=== PATIENT | female | born 1985 | race Caucasian/White ===

== ENCOUNTER 2016-09-29 22:19 | Emergency (ER) | payer OTHER ==
[~2016-09-29] VITALS: Ht 152.4 cm; Wt 75.0 kg
[2016-09-29 22:22] VITALS: Ht 152.4 cm; Wt 75.0 kg
[2016-09-30] MEDS ORDERED: SOD CHLORIDE 0.9% 1,000 ML IV STA (00:15)
[2016-09-30] MEDS ORDERED: ONDANSETRON 4 MG INJ IV STA (00:15)
[2016-09-30] MEDS ORDERED: morphine 4 MG/ML VIAL IV STA ×2 (00:15→02:09)
--- NOTE | 2016-09-30 00:31 | ERD ---
ER Documentation Chief Complaint Date/Time DATE: 09/30/16 TIME: 00:29 Chief Complaint epigastric burning pain,vomiting HPI 31-year-old female presents to emergency department for complaints of epigastric pain started today. Patient described the pain as sharp, burning 8/ 10 scale, accompanied with vomiting. Patient did not take any medications up with symptoms. Patient denies any fever or chills. Patient denies any blood in the stool or black stool. Patient denies any diarrhea. Patient denies any blood in the vomit. Patient did not take any medications to help with symptoms. ROS All systems reviewed and are negative except as per history of present illness. Medications Home Meds Reported Medications [none] Unknown Strength No Conflict Check 09/30/16 Allergies Allergies: Coded Allergies: No Known Allergy (Unverified , 09/29/16) PMhx/Soc Medical and Surgical Hx: pt denies Medical Hx, pt denies Surgical Hx FmHx Family History: No coronary disease, No diabetes, No other Physical Exam Vitals Vital Signs Date Time Temp Pulse Resp B/P Pulse Ox O2 Delivery O2 Flow Rate FiO2 09/29/16 22:22 98.1 87 18 140/87 100 Physical Exam GENERAL: The patient is well developed and appropriate for usual state of health, in no apparent distress. CHEST: Clear to auscultation bilaterally. There are no rales, wheezes or rhonchi. HEART: Regular rate and rhythm. No murmurs, clicks, rubs or gallops. No S3 or S4. ABDOMEN: Soft, that epigastric tenderness and nondistended. Good bowel sounds. No rebound or guarding. No gross peritonitis. No gross organomegaly or masses. No Sparks sign or McBurney point tenderness. BACK: No midline or flank tenderness. EXTREMITIES: Equal pulses bilaterally. There is no peripheral clubbing, cyanosis or edema. No focal swelling or erythema. Full range of motion. Grossly neurovascularly intact. NEURO: Alert and oriented. Cranial nerves 2-12 intact. Motor strength in all 4 extremities with 5/5 strength. Sensation grossly intact. Normal speech and gait. SKIN: There is no apparent rash or petechia. The skin is warm and dry. HEMATOLOGIC AND LYMPHATIC: There is no evidence of excessive bruising or lymphedema. No gross cervical, axillary, or inguinal lymphadenopathy. Result Diagram: 09/30/16 0030 09/30/16 0030 Results 24 hrs Laboratory Tests Test 09/30/16 00:30 09/30/16 01:00 Alanine Aminotransferase (ALT/SGPT) 27IU/L Albumin 4.7g/dl Albumin/Globulin Ratio 1.17 Alkaline Phosphatase 68IU/L Anion Gap 20 Aspartate Amino Transf (AST/SGOT) 26IU/L Basophils # 0.110^3/ul Basophils % 0.3% Blood Urea Nitrogen 11mg/dl Calcium Level 9.6mg/dl Carbon Dioxide Level 25mmol/L Chloride Level 98mmol/L Creatinine 0.65mg/dl Direct Bilirubin 0.00mg/dl Eosinophils # 0.110^3/ul Eosinophils % 0.5% Globulin 4.00g/dl Glucose Level 107mg/dl Hematocrit 39.0% Hemoglobin 13.3g/dl Indirect Bilirubin 0.8mg/dl Lipase 109U/L Lymphocytes # 1.310^3/ul Lymphocytes % 8.1% Mean Corpuscular Hemoglobin 29.6pg Mean Corpuscular Hemoglobin Concent 34.1g/dl Mean Corpuscular Volume 86.7fl Mean Platelet Volume 8.6fl Monocytes # 0.610^3/ul Monocytes % 3.8% Neutrophils # 13.610^3/ul Neutrophils % 87.3% Nucleated Red Blood Cells # 0.010^3/ul Nucleated Red Blood Cells % 0.0/100WBC Platelet Count 91016^3/UL Potassium Level 4.0mmol/L Red Blood Count 4.5010^6/ul Red Cell Distribution Width 13.3% Sodium Level 139mmol/L Total Bilirubin 0.8mg/dl Total Protein 8.7g/dl White Blood Count 15.610^3/ul Urine Bilirubin NEGATIVE Urine Clarity CLEAR Urine Color LT. YELLOW Urine Glucose NEGATIVE% Urine Hemoglobin NEGATIVE Urine Ketones 40 Urine Leukocyte Esterase NEGATIVE Urine Nitrite NEGATIVE Urine Specific [place] 1.020 Urine Total Protein NEGATIVE Urine Urobilinogen 0.2 E.U./dL Urine pH 6.5 Current Medications Medications (Trade) Dose Ordered Sig/Melvin Route PRN Reason Start Time Stop Time Status Last Admin Dose Admin Sodium Chloride (NS) 1,000 ml @ 1,000 mls/hr Q1H STAT IV 09/30/16 00:15 09/30/16 01:14 DC 09/30/16 00:29 Morphine Sulfate (morphine) 4 mg ONCE STAT IV 09/30/16 00:15 09/30/16 00:18 DC 09/30/16 00:30 Ondansetron HCl (Zofran Inj) 4 mg ONCE STAT IV 09/30/16 00:15 09/30/16 00:18 DC 09/30/16 00:29 Morphine Sulfate 4 mg 4 mg ONCE STAT IV 09/30/16 02:09 09/30/16 02:11 DC 09/30/16 02:13 Sodium Chloride (NS) 100 ml @ ud STK-MED ONCE .ROUTE 09/30/16 02:43 09/30/16 02:44 DC 09/30/16 03:05 Iohexol (Omnipaque 300mg/ ml) 150 ml STK-MED ONCE .ROUTE 09/30/16 02:43 09/30/16 02:44 DC 09/30/16 03:04 Patient was given medication for pain here in emergency department, after treatment, patient verbalized feeling much better. Patient's pain is improved.Patient was given Zofran here in the emergency department. After treatment, patient was able to tolerate po fluids here in the emergency department without any vomiting. There is no signs and symptoms of dehydration. Normal saline IV bolus was given here in emergency department for rehydration, patient tolerated IV fluids. PROCEDURE: US gallbladder. CLINICAL INDICATION: Abdominal pain. TECHNIQUE: Multiple real-time images were acquired of the patient's abdomen utilizing a high resolution transducer. COMPARISON: None FINDINGS: There are multiple stones within the gallbladder. There is no pericholecystic fluid or gallbladder wall thickening. Gallbladder wall measures 3 mm. The common bile duct measures 4 mm in maximal dimension. No free fluid is identified. Liver measures 141 mm. Right kidney measures 104 mm. No evident renal mass, hydronephrosis retained calculus. Partially visualized pancreas is unremarkable. IMPRESSION: Gallstones, without evident gallbladder wall thickening or pericholecystic fluid. RPTAT: [facility] Physician Bhargavi Date Time Electronically viewed and signed by Physician Bhargavi on 09/30/2016 00:56 RS/ CC: LIZZY DOMINGUEZ NP PROCEDURE: CT Abdomen and pelvis with contrast. CLINICAL INDICATION: Abdominal pain. TECHNIQUE: CT scan of the abdomen and pelvis with contrast was performed on a multi-detector high-resolution CT scanner. The patient was scanned following the uncomplicated intravenous administration of 100 cc of Omnipaque 300. Coronal and sagittal reformatted images were obtained from the axial source images. Images were reviewed on a high-resolution PACS workstation. One or more of the following dose reduction techniques were used: - Automated exposure control. - Adjustment of the mA and/or kV according to patient size. - Use of iterative reconstruction technique. Exam CTD/vol = 13.26 mGy. Total exam DLP = 792.50 mGy-cm. COMPARISON: None. FINDINGS: Evaluation of the lung bases demonstrates mild bibasilar atelectasis. Abdomen: The liver is normal in size with no focal mass identified. There is minimal intrahepatic biliary ductal dilatation of the biliary tree. The gallbladder is not distended. The spleen, pancreas and bilateral adrenal glands are within normal limits. Bilateral kidneys are normal in size with symmetric enhancement. There is no focal mass, hydronephrosis or hydroureter. There is no retroperitoneal adenopathy. The abdominal aorta is of normal caliber. There is a retroaortic left renal vein. There is no abnormal bowel wall thickening or distension. There is no bowel obstruction or free air. A normal appendix is identified. There is no diverticulosis or diverticulitis. There is no ascites. Pelvis: The bladder is unremarkable. The uterus and adnexa are within normal limits. There is no significant pelvic adenopathy or free fluid. Evaluation of the osseous structures demonstrates no suspicious lytic or blastic lesion. There is increase sclerosis surrounding the right sacroiliac joint. IMPRESSION: Minimal intrahepatic biliary ductal dilatation. Right-sided sacroiliitis. Mild bibasilar atelectasis. Otherwise no acute abnormality identified within the abdomen and pelvis. .Arnulfo Oviedo MD, Date Time Electronically viewed and signed by .Arnulfo Oviedo MD, MD on 09/30/2016 03:10 .T/ CC: LIZZY DOMINGUEZ NP Procedures/MDM Medical Decision Making: Patient's symptoms is likely consistent with biliary colic. No liver function test elevation, no symptoms of choledocholithiasis, acute cholecystitis. There is low suspicion for abdominal emergencies at this time. Patients abdominal exam is normal at this time. Patients radiology exam does not show any abdominal emergencies at this time. There is low suspicion for appendicitis, cholecystitis, abdominal aortic aneurysms or peritonitis at this time. There is low suspicion for sepsis. Patient appears well and is hemodynamically stable. Disposition: Home. Condition: Stable Prescription [place], Zofran Instructions: Patient is advised to take medications as prescribed. Patient is advised to rest, increase fluid intake and do brat diet for next 1-2 days and progress as tolerated, avoid fatty food. Patient is advised that if symptoms are worse, severe abdominal pain, uncontrolled vomiting, high fever, severe flank pain, worst signs and symptoms, to return to the emergency department immediately. Otherwise, patient can follow up with primary care doctor in 5-7 days. If pain continues to consult a general surgeon for possible removal of the gallbladder. Departure Diagnosis: Primary Impression: Biliary colic Condition: Stable Patient Instructions: Biliary Colic With Gallstone (Confirmed) Additional Instructions: Patient is advised to take medications as prescribed. Patient is advised to rest , increase fluid intake and do brat diet for next 1-2 days and progress as tolerated, avoid fatty food. Patient is advised that if symptoms are worse, severe abdominal pain, uncontrolled vomiting, high fever, severe flank pain, worst signs and symptoms, to return to the emergency department immediately. Otherwise, patient can follow up with primary care doctor in 5-7 days. If pain continues to consult a general surgeon for possible removal of the gallbladder. LIZZY DOMINGUEZ NP Sep 30, 2016 00:30
--- NOTE | 2016-09-30 00:57 | RADRPT ---
PROCEDURE: US gallbladder. CLINICAL INDICATION: Abdominal pain. TECHNIQUE: Multiple real-time images were acquired of the patient's abdomen utilizing a high resol ution transducer. COMPARISON: None FINDINGS: There are multiple stones within the gallbladder. There is no pericholecystic fluid or gallbladder w all thickening. Gallbladder wall measures 3 mm. The common bile duct measures 4 mm in maximal dimension. No free fluid is identified. Liver measures 141 mm. Right kidney measures 104 mm. No evident renal mass, hydronephrosis retaine d calculus. Partially visualized pancreas is unremarkable. IMPRESSION: Gallstones, without evident gallbladder wall thickening or pericholecystic fluid. RPTAT: [facility] Physician Bhargavi Date Time Electronically viewed and signed by Physician Bhargavi on 09/30/2016 00:56 RS/
[2016-09-30 01:18] LABS: BASOPHIL # 0.1 10^3/ul (0.0-0.1); BASOPHILS % 0.3 % (0.0-2.0); EOSINOPHILS # 0.1 10^3/ul (0.0-0.5); EOSINOPHILS % 0.5 % (0.0-7.0); HEMOGLOBIN 13.3 g/dl (12.0-16.0); LYMPHOCYTES # 1.3 10^3/ul (0.8-2.9); LYMPHOCYTES % 8.1 % (15.0-51.0); MEAN CORPUSCULAR HEMOGLOBIN 29.6 pg (29.0-33.0); MEAN CORPUSCULAR HGB CONC 34.1 g/dl (32.0-37.0); MEAN CORPUSCULAR VOLUME 86.7 fl (82.0-101.0); MEAN PLATELET VOLUME 8.6 fl (7.4-10.4); MONOCYTE # 0.6 10^3/ul (0.3-0.9); MONOCYTES % 3.8 % (0.0-11.0); NEUTROPHIL # 13.6 10^3/ul (1.6-7.5); NEUTROPHILS % 87.3 % (39.0-77.0); PLATELET COUNT 357 10^3/UL (140-440); RED CELL DISTRIBUTION WIDTH 13.3 % (11.5-14.5); UNCORRECTED WBC 15.6 10^3/ul (4.8-10.8); WHITE BLOOD COUNT 15.6 10^3/ul (4.8-10.8)
[2016-09-30 01:22] LABS: CONDITION 1
[2016-09-30 01:24] LABS: ALBUMIN 4.7 g/dl (3.3-4.9)
[2016-09-30 01:26] LABS: BILIRUBIN,INDIRECT 0.8 mg/dl (0-1.1); BILIRUBIN,TOTAL 0.8 mg/dl (0.2-1.3); CREATININE 0.65 mg/dl (0.44-1.00)
[2016-09-30 01:27] LABS: ALBUMIN/GLOBULIN RATIO 1.17; CALCIUM 9.6 mg/dl (8.4-10.2); TOTAL PROTEIN 8.7 g/dl (6.1-8.1)
[2016-09-30 01:42] LABS: ADD UMIC NO; URINE BILIRUBIN (Dip) NEGATIVE (NEGATIVE); URINE BLOOD (Dip) NEGATIVE (NEGATIVE); URINE COLOR LT. YELLOW (YELLOW); URINE GLUCOSE (Dip) NEGATIVE (NEGATIVE); URINE KETONES (Dip) 40 (NEGATIVE); URINE LEUKOCYTE ESTERASE (Dip) NEGATIVE (NEGATIVE); URINE NITRITE (Dip) NEGATIVE (NEGATIVE); URINE TOTAL PROTEIN (Dip) NEGATIVE (NEGATIVE); URINE UROBILINOGEN (Dip) 0.2 E.U./dL (0.1-1.0)
[2016-09-30] MEDS ORDERED: SOD CHLORIDE 0.9% 100 ML ONE (02:43)
[2016-09-30] MEDS ORDERED: IOHEXOL 300MG/ML 150 ML BTL ONE (02:43)
--- NOTE | 2016-09-30 03:10 | RADRPT ---
PROCEDURE: CT Abdomen and pelvis with contrast. CLINICAL INDICATION: Abdominal pain. TECHNIQUE: CT scan of the abdomen and pelvis with contrast was performed on a multi-detector high -resolution CT scanner. The patient was scanned following the uncomplicated intravenous administrat ion of 100 cc of Omnipaque 300. Coronal and sagittal reformatted images were obtained from the axia l source images. Images were reviewed on a high-resolution PACS workstation. One or more of the following dose reduction techniques were used: - Automated exposure control. - Adjustment of the mA and/or kV according to patient size. - Use of iterative reconstruction technique. Exam CTD/vol = 13.26 mGy. Total exam DLP = 792.50 mGy-cm. COMPARISON: None. FINDINGS: Evaluation of the lung bases demonstrates mild bibasilar atelectasis. Abdomen: The liver is normal in size with no focal mass identified. There is minimal intrahepatic biliary ductal dilatation of the biliary tree. The gallbladder is not distended. The spleen, pancr eas and bilateral adrenal glands are within normal limits. Bilateral kidneys are normal in size wit h symmetric enhancement. There is no focal mass, hydronephrosis or hydroureter. There is no retrop eritoneal adenopathy. The abdominal aorta is of normal caliber. There is a retroaortic left renal v ein. There is no abnormal bowel wall thickening or distension. There is no bowel obstruction or free air . A normal appendix is identified. There is no diverticulosis or diverticulitis. There is no asci jackie. Pelvis: The bladder is unremarkable. The uterus and adnexa are within normal limits. There is no significant pelvic adenopathy or free fluid. Evaluation of the osseous structures demonstrates no suspicious lytic or blastic lesion. There is in crease sclerosis surrounding the right sacroiliac joint. IMPRESSION: Minimal intrahepatic biliary ductal dilatation. Right-sided sacroiliitis. Mild bibasilar atelectasis. Otherwise no acute abnormality identified within the abdomen and pelvis. .Arnulfo Oviedo MD, MD Date Time Electronically viewed and signed by .Arnulfo Oviedo MD, MD on 09/30/2016 03:10 .T/
[2016-09-30] MEDS ORDERED: HYDR-906 PO (03:14)
[2016-09-30] MEDS ORDERED: ONDA4TAB14 PO (03:14)
[2016-09-30 03:40] VITALS: BP 108/61; PULSE 65; RESP 17; TEMP 98.1
== END 2016-09-30 03:41 | disposition home or self-care (01) ==
LOC: FTE 22:19
DX: K80.20 Calculus of gallbladder without cholecystitis without obstruction (principal)
CPT/HCPCS: 74177; 76705; 80053; 81003; 83690; 85025; J2270; J2405; J7030; Q9967; Z7610; 36415; 96374; 96375; 96376

== ENCOUNTER 2016-10-01 02:52 | Inpatient (IN) | payer OTHER ==
[2016-10-01] VITALS (17 sets, daily range): BP systolic 97–122; BP diastolic 55–71; PULSE 70–94; RESP 11–19; Ht 152.4 cm; Wt 175.0 kg
[~2016-10-01] VITALS: Ht 152.4 cm; Wt 175.0 kg
[~2016-10-01 02:52] MED LIST: HYDR-906 PO; ONDA4TAB14 PO
[2016-10-01] MEDS ORDERED: ONDANSETRON 4 MG INJ IV STA ×3 (03:36→09:47)
[2016-10-01] MEDS ORDERED: SOD CHLORIDE 0.9% 1,000 ML IV STA (03:36)
[2016-10-01] MEDS ORDERED: HYDROmorphONE 1 MG/ML SYG IV STA ×5 (03:36→11:05)
[2016-10-01 03:56] LABS: BASOPHIL # 0.1 10^3/ul (0.0-0.1); BASOPHILS % 0.6 % (0.0-2.0); EOSINOPHILS # 0.2 10^3/ul (0.0-0.5); EOSINOPHILS % 2.6 % (0.0-7.0); HEMOGLOBIN 13.2 g/dl (12.0-16.0); LYMPHOCYTES % 21.5 % (15.0-51.0); MEAN CORPUSCULAR HEMOGLOBIN 30.2 pg (29.0-33.0); MEAN CORPUSCULAR HGB CONC 34.7 g/dl (32.0-37.0); MEAN CORPUSCULAR VOLUME 87.2 fl (82.0-101.0); MEAN PLATELET VOLUME 8.1 fl (7.4-10.4); MONOCYTE # 0.5 10^3/ul (0.3-0.9); MONOCYTES % 5.9 % (0.0-11.0); NEUTROPHIL # 6.4 10^3/ul (1.6-7.5); NEUTROPHILS % 69.4 % (39.0-77.0); PLATELET COUNT 356 10^3/UL (140-440); RED BLOOD COUNT 4.35 10^6/ul (4.20-5.40); RED CELL DISTRIBUTION WIDTH 12.9 % (11.5-14.5); UNCORRECTED WBC 9.2 10^3/ul (4.8-10.8); WHITE BLOOD COUNT 9.2 10^3/ul (4.8-10.8)
[2016-10-01 04:01] LABS: CONDITION 1
[2016-10-01 04:15] LABS: ALBUMIN 4.5 g/dl (3.3-4.9)
[2016-10-01 04:16] LABS: POTASSIUM 3.7 mmol/L (3.5-5.1)
[2016-10-01 04:18] LABS: CREATININE 0.65 mg/dl (0.44-1.00)
[2016-10-01 04:19] LABS: ALBUMIN/GLOBULIN RATIO 1.25; CALCIUM 9.4 mg/dl (8.4-10.2); TOTAL PROTEIN 8.1 g/dl (6.1-8.1)
--- NOTE | 2016-10-01 05:39 | ERA ---
ER Documentation Chief Complaint Date/Time DATE: 10/01/16 TIME: 05:38 Chief Complaint abdominal pain with N/V x 2 days, diagnosed here yesterday with gallstones. HPI This is 31 feet with known history of gallstones comes in with abdominal pain nausea vomiting the past 2 days which was diagnosed yesterday with gallstones. She comes in today with intractable pain and 4-5 episodes bilious nonbloody vomiting. Pain is moderate to severe in intensity per patient. ROS All systems reviewed and are negative except as per history of present illness. Medications Home Meds Active Scripts Ondansetron (Ondansetron Odt) 4 Mg Tab.rapdis, 4 MG PO Q8 Y for NAUSEA AND/OR VOMITING, #10 TAB Prov:LIZZY DOMINGUEZ METAL BONDER 09/30/16 Hydrocodone/Acetaminophen ([place] 5-325 Tablet) 1 Each Tablet, 1 TAB PO Q6H Y for PAIN, #20 TAB Prov:LIZZY DOMINGUEZ METAL BONDER 09/30/16 Reported Medications [none] Unknown Strength No Conflict Check 09/30/16 Allergies Allergies: Coded Allergies: No Known Allergy (Unverified , 09/29/16) PMhx/Soc History of Surgery: No Anesthesia Reaction: No Hx Neurological Disorder: No Hx Respiratory Disorders: No Hx Cardiac Disorders: No Hx Psychiatric Problems: No Hx Miscellaneous Medical Probl: Yes (GALLSTONES) Hx Alcohol Use: No Hx Substance Use: No Hx Tobacco Use: No Smoking Status: Never smoker Physical Exam Vitals Vital Signs Date Time Temp Pulse Resp B/P Pulse Ox O2 Delivery O2 Flow Rate FiO2 10/01/16 04:35 90 16 109/67 97 Room Air 10/01/16 02:57 96.8 82 20 136/87 99 Physical Exam Const: [] Head: Atraumatic Eyes: Normal Conjunctiva ENT: Normal External Ears, Nose and Mouth. Neck: Full range of motion..~ No meningismus. Resp: Clear to auscultation bilaterally Cardio: Regular rate and rhythm, no murmurs Abd: Soft, non tender, non distended. Normal bowel sounds Skin: No petechiae or rashes Back: No midline or flank tenderness Ext: No cyanosis, or edema Neur: Awake and alert Psych: Normal Mood and Affect Result Diagram: 10/01/1634210/01/16342 Results 24 hrs Laboratory Tests Test 10/01/16 03:43 Alanine Aminotransferase (ALT/SGPT) 26IU/L Albumin 4.5g/dl Albumin/Globulin Ratio 1.25 Alkaline Phosphatase 63IU/L Anion Gap 19 Aspartate Amino Transf (AST/SGOT) 24IU/L Basophils # 0.110^3/ul Basophils % 0.6% Blood Urea Nitrogen 7mg/dl Calcium Level 9.4mg/dl Carbon Dioxide Level 25mmol/L Chloride Level 102mmol/L Creatinine 0.65mg/dl Direct Bilirubin 0.00mg/dl Eosinophils # 0.210^3/ul Eosinophils % 2.6% Globulin 3.60g/dl Glucose Level 104mg/dl Hematocrit 38.0% Hemoglobin 13.2g/dl Indirect Bilirubin 1.0mg/dl Lipase 114U/L Lymphocytes # 2.010^3/ul Lymphocytes % 21.5% Mean Corpuscular Hemoglobin 30.2pg Mean Corpuscular Hemoglobin Concent 34.7g/dl Mean Corpuscular Volume 87.2fl Mean Platelet Volume 8.1fl Monocytes # 0.510^3/ul Monocytes % 5.9% Neutrophils # 6.410^3/ul Neutrophils % 69.4% Nucleated Red Blood Cells # 0.010^3/ul Nucleated Red Blood Cells % 0.0/100WBC Platelet Count 62871^3/UL Potassium Level 3.7mmol/L Red Blood Count 4.3510^6/ul Red Cell Distribution Width 12.9% Sodium Level 142mmol/L Total Bilirubin 1.0mg/dl Total Protein 8.1g/dl White Blood Count 9.210^3/ul Current Medications Medications (Trade) Dose Ordered Sig/Melvin Route PRN Reason Start Time Stop Time Status Last Admin Dose Admin Sodium Chloride (NS) 1,000 ml @ 1,000 mls/hr Q1H STAT IV 10/01/16 03:36 10/01/16 04:35 DC 10/01/16 03:49 Hydromorphone HCl (Dilaudid) 1 mg ONCE STAT IV 10/01/16 03:36 10/01/16 03:37 DC 10/01/16 03:50 Ondansetron HCl (Zofran Inj) 4 mg ONCE STAT IV 10/01/16 03:36 10/01/16 03:37 DC 10/01/16 03:50 Hydromorphone HCl (Dilaudid) 1 mg ONCE STAT IV 10/01/16 04:58 10/01/16 05:03 DC 10/01/16 05:04 Procedures/MDM Medical physician: Patient has failure of outpatient management for biliary colic. Patient will be admitted with surgical consult. Hospitalist made aware. Departure Diagnosis: Primary Impression: Biliary colic Condition: Stable JEREMIAH VILLAVICENCIO Oct 01, 2016 05:39
[2016-10-01] MEDS: PIPER-TAZO 3.375 GM IV (PMX) 100 ML IVPB SCH ×2 (06:52→22:34)
[2016-10-01] MEDS ORDERED: morphine 4 MG/ML VIAL IV PRN (07:00)
[2016-10-01] MEDS ORDERED: CEFAZOLIN 1 GM INJ ONE (07:00)
[2016-10-01] MEDS ORDERED: metroNIDAZOLE 500 MG/100 ML NS IVPB ONE (07:00)
[2016-10-01] MEDS: ONDANSETRON 4 MG INJ IV PRN (08:34)
--- NOTE | 2016-10-01 12:47 | RADRPT ---
PROCEDURE: MRI abdomen without contrast; MRCP CLINICAL INDICATION: abdominal pain TECHNIQUE: Multiplanar, multisequence imaging of the abdomen was obtained without contrast. Axial and coronal T2 92 fat-saturated images. In addition, a dedicated high T2 signal intensity MRCP images were obtained in multiple planes with 3-D reconstructions. COMPARISON: CT abdomen 09/30/2016 FINDINGS: Multiple small layering gallstones are seen in the gallbladder which demonstrates wall thickening an d mild pericholecystic fat stranding. There is mild prominence of the intrahepatic biliary ducts wi th mild distension of the common duct however these are nondilated. No visible filling defects are seen within the biliary ductal system and there is no pancreatic ductal dilatation. There is uniform signal intensity of the liver without evidence of mass. There is a flow void seen within the portal vein without gross evidence for portal vein thrombus. The kidneys are symmetric without hydronephrosis or mass. The adrenal glands are within normal limi ts. The pancreas is uniform without surrounding inflammation. There is no evidence of bowel obstruction or inflammatory changes of the mesentery. The aorta is un remarkable. There are no enlarged lymph nodes. There is no acute osseous abnormality. IMPRESSION: There is cholelithiasis with findings suggestive for acute cholecystitis. There is no definite find ings of choledocholithiasis. No layering filling defects are seen in the biliary ductal system. No visible inflammatory changes seen around the pancreas however this can be correlated with amylase /lipase levels. A call report was made to José Rodrigues at 10/01/2016 12:46:53 PM RPTAT: AA .Joaquim Trujillo MD, MD Date Time Electronically viewed and signed by .Joaquim Trujillo MD, MD on 10/01/2016 12:46 .[place]/
--- NOTE | 2016-10-01 13:36 | HP ---
DATE OF ADMISSION: 10/01/2016 CHIEF COMPLAINT: Right upper quadrant pain. HISTORY OF PRESENT ILLNESS: The patient presents to the emergency room at [facility] for t he second time in as many days with right upper quadrant pain with associated nausea. She states th at she first noticed this pain approximately 4 days ago, that the pain came and then went away, but it recurred. She came here to the emergency room. She got good symptomatic relief and was discharg ed to home, with plan for outpatient followup. However, the pain recurred to the point where she ne eded to return to the emergency room and she is now admitted for symptomatic gallstone disease. PAST MEDICAL HISTORY: Nil. MEDICATIONS: As an outpatient nil. ALLERGIES: Nil. SOCIAL HISTORY: Lives at home in [place] with her mother and fiance. Independent of activities of daily living. Works as a medical office secretary. Denies tobacco and illicit drug use. Rare alcohol . FAMILY HISTORY: Noncontributory. REVIEW OF SYSTEMS: Five systems reviewed and found not to be revealing. PHYSICAL EXAMINATION: VITAL SIGNS: Blood pressure is 112/79, pulse rate 79, respirations 19, temperature is 96.8. GENERAL: Pleasant young man in no acute distress. Alert and oriented x3. HEENT: Normocephalic, atraumatic without scleral icterus, perioral cyanosis. Mucous membranes are moist. NECK: Soft and supple without masses. No evidence of jugular venous distention or carotid bruits. CHEST: Clear to auscultation and percussion bilaterally. HEART: Regular rate and rhythm, S1-S2, no added sounds. ABDOMEN: Soft, tender in the right upper quadrant, especially at Sparks's point. No palpable hepat osplenomegaly. EXTREMITIES: Without clubbing, cyanosis or edema. SKIN: Without rashes. NEUROLOGIC: Grossly intact. LABORATORY STUDIES: Reveal a hemoglobin of 13.2 g/dL, white count 9200, platelets of 356,000. [place] um 142, potassium 3.7, chloride 102, bicarbonate 25, BUN 7, creatinine 0.65, glucose 104. Liver fun ction tests within normal limits. Lipase is normal. Right upper quadrant ultrasound reveals multip le gallstones with normal common bile duct. No pericholecystic fluid or wall thickening. ASSESSMENT AND PLAN: 1. Gastrointestinal: The patient with right upper quadrant pain, most likely related to symptomati c gallstone disease. Surgical consultation with Dr. Rodrigues has been requested. Anticipate surgica l treatment of the same. Will obtain MRCP to rule out common bile duct stone. 2. Preoperative evaluation. Patient is a low risk patient for a low to intermediate risk procedure and may proceed to the operating room without further risk stratification or modification. "Patient is cleared for surgery." 3. Prophylaxis with ambulation. Dictated By: FLAKO HARRY MD RER/NTS Conf#: [id number] DID#: [id number]
[2016-10-01] MEDS ORDERED: ROPIVACAINE 0.2% 20 ML VIAL ONE (16:19)
[2016-10-01] MEDS ORDERED: FENTAnyl 50 MCG/ML VIAL ONE (16:19)
[2016-10-01] MEDS ORDERED: ROCURONIUM 50 MG INJ ONE ×2 (16:19→18:15)
[2016-10-01] MEDS ORDERED: PROPOFOL 20 ML ONE (16:19)
[2016-10-01] MEDS ORDERED: MIDAZOLAM 1 MG/ML 2 ML INJ ONE (16:19)
[2016-10-01] MEDS ORDERED: IOHEXOL 300MG/ML 30 ML BTL ONE (17:16)
[2016-10-01] MEDS ORDERED: KETOROLAC 30 MG INJ ONE (17:40)
[2016-10-01] MEDS ORDERED: NEOSTIGMINE 3 MG/3 ML SYRINGE ONE (17:40)
[2016-10-01] MEDS ORDERED: GLYCOPYRROLATE 0.4 MG INJ ONE (17:40)
[2016-10-01] MEDS ORDERED: DEXAMETHASONE 4 MG/ML 1 ML INJ ONE (17:40)
[2016-10-01] MEDS ORDERED: METOCLOPRAMIDE 10 MG INJ ONE (17:40)
[2016-10-01] MEDS ORDERED: ONDANSETRON 4 MG INJ ONE ×2 (17:40→19:27)
[2016-10-01] MEDS ORDERED: BUPIVACAINE 0.25%/EPI (SDV) 30 ML INJ INJ ONE (18:16)
--- NOTE | 2016-10-01 18:16 | RADRPT ---
PROCEDURE: XR acute abdominal series. CLINICAL INDICATION: Cholecystitis. Intraoperative cholangiogram. TECHNIQUE: To frontal views of the abdomen were obtained during intraoperative cholangiogram. COMPARISON: MRI abdomen dated today, earlier in the day. FINDINGS: Intraoperative cholangiogram with opacification of the cystic duct and antegrade opacification the c ommon bile duct with free spillage of contrast material into the small bowel. There is retrograde f illing of the distal hepatic biliary structures. There is no evident retained calculus to suggest choledocholithiasis, or evident mass or stricture. Question right mainstem bronchus intubation. There is intraperitoneal air. IMPRESSION: 1. Free spillage of contrast material into the small bowel, without evident common bile duct obstru ction. 2. Question right mainstem bronchus intubation. 3. Recommend plain film chest to evaluate endotracheal intubation tip position RPTAT: [facility]U Physician Bhargavi Date Time Electronically viewed and signed by Physician Bhargavi on 10/01/2016 18:15 RS/
[2016-10-01] MEDS ORDERED: DIPHENHYDRAMINE 50 MG INJ IV PRN (18:30)
[2016-10-01] MEDS ORDERED: METOCLOPRAMIDE 10 MG INJ IV PRN (18:30)
[2016-10-01] MEDS ORDERED: ONDANSETRON 4 MG INJ IV PRN (18:30)
[2016-10-01] MEDS ORDERED: MEPERIDINE 25 MG INJ IV PRN (18:30)
[2016-10-01] MEDS ORDERED: morphine (1 MG/ML) 10ML SYRINGE IV PRN ×3 (18:30)
[2016-10-01] MEDS ORDERED: HYDROmorphONE (0.2 MG/ML) 10ML SYG IV PRN ×3 (18:30)
--- NOTE | 2016-10-01 18:57 | OPR ---
Date/Time of Note Date/Time of Note DATE: 10/01/16 TIME: 18:49 Operative Report Procedure Date: Oct 01, 2016 Procedure Description Preoperative Diagnosis: Symptomatic cholelithiasis Acute cholecystitis Dilated biliary ducts, possible choledocholithiasis BMI 32 Postoperative Diagnosis: Symptomatic cholelithiasis Acute cholecystitis Cholangiogram negative for choledocholithiasis Abnormal liver color BMI 32 Operation(s) Performed: 1. 3 port laparoscopic cholecystectomy 2. Laparoscopic liver wedge resection biopsy 3. Laparoscopic intraoperative cholangiogram 4. Local anesthetic injection, [id number] Surgeon: KAPIL GALLARDO MD Anesthesia: general, local, & regional Anesthesiologist: Florencio Blount MD Estimated Blood Loss: 50 ml's Specimens: Liver Gallbladder Tubes/Drains: None Complications: None Pt Condition Post Procedure: stable Disposition: PACU Indications: 31-year-old female with gallstones and abdominal pain here for cholecystectomy as per consult note. Risks include but are not limited to bleeding, infection, abscess, seroma, damage to intestines, damage to the liver, damage to biliary tree, hernia formation, chronic pain, biloma, need for reoperations or further surgeries, IA , stroke, PE, DVT, pneumonia, organ failures, or even . Procedure Description: Patient was brought and placed supine on the operating table SCDs were placed, preoperative antibiotics were administered, all pressure points were well-padded , and after induction of anesthesia patient was prepped and draped in usual sterile fashion and timeout was performed. Incision was made in the supraumbilical region, Veress was safely inserted, and after a negative SIP test , abdomen was insufflated to 15mmHg. Veress was removed and 5mm port was safely inserted. Laparoscopy was performed with a 5 mm 30 scope. No injuries were identified. The liver looks somewhat abnormal color. Gallbladder is without evidence of section. 12 mm port is placed in subxiphoid under direct visualization followed by another 5 mm port in the right upper quadrant. All port sites were injected with quarter percent Marcaine with epi and 1% lidocaine prior to any incisions. Bilateral transversus abdominis plane block was performed under laparoscopic visualization to aid with pain control intra-and postoperatively. Patient was placed in reverse Trendelenburg and right side up on gallbladder was retracted superolaterally. The gallbladder was large, infected, and distended. Using electrocautery and blunt dissection I was able to identify the cystic artery and cystic duct. The duct was minimally dilated but tapered into the gallbladder. Full critical angle view was identified. A Cystotomy was created. Cholangiogram catheter was inserted. Cholangiography was performed with hepatic and common bile duct tree fully visualize. Small bowel visualized. No filling defects identified. At this point catheter was removed. Both structures (cystic artery and cystic duct) were clipped twice proximally and once distally and transected. The gallbladder was taken off the liver with electrocautery. Hemostasis was obtained. Gallbladder was placed in an Endo Catch bag and removed through the subxiphoid port site. There was complete hemostasis. Due to the abnormality of the liver decision was made to perform liver wedge resection which was done with electrocautery and scissor with complete hemostasis right after. The specimen was sent to pathology for further evaluation. 15F jatinder drain was placed through lateral incision to drain the liver and gb sites. 12 mm made port site fascia was closed with Endo Close of an 0 Vicryl in a [id number] manner. Ports and CO2 were removed under direct visualization. Next complete hemostasis. Wounds were thoroughly irrigated skin was closed with 4-0 Monocryl in subcuticular fashion. Dermabond was applied. Patient was extubated and transferred to recovery room in stable condition and all counts were correct and the end of the operation 2.operation 2. KAPIL GALLARDO MD Oct 01, 2016 18:57
[2016-10-01] MEDS ORDERED: MEPERIDINE 25 MG INJ ONE (19:26)
[2016-10-01] MEDS ORDERED: HYDROmorphONE (0.2 MG/ML) 10ML SYG IV ONE (19:26)
--- NOTE | 2016-10-01 19:26 | CONS ---
DATE OF ADMISSION: 10/01/2016 DATE OF CONSULTATION: 10/01/2016 TYPE OF CONSULTATION: Surgical. REFERRING PHYSICIAN: Donta Donahue MD CHIEF COMPLAINT: 1. Abdominal pain. 2. Gallstones. 3. Slight dilation of common bile duct. 4. Possible cholecystitis. 5. Body mass index 32, obesity. HISTORY OF PRESENT ILLNESS: Aminta Beavers is a 31-year-old female who presents with 4 days of epigastric and right upper quadrant abdominal pain associated with nausea, vomiting but no fevers , chills. No chest pain, no shortness of breath. No visual or neurologic changes. She denies any dysuria or vaginal discharge. No trauma or sick contacts. No previous history of the same. No ski n, urine, stool or eyeball color changes. In the emergency room, she is found to be afebrile and stable and normal vital signs. Chemistry and LFTs are within normal. CBC is within normal. Urine is negative. An abdominal ultrasou nd identified gallstones without gallbladder wall thickening or pericholecystic fluid. However, I o rdered an MRCP which confers with slight dilatation of common bile duct, but no obvious stones are i dentified. The patient also had a CT scan of the abdomen and pelvis with indication of right-sided sacroiliitis, minimal intrahepatic biliary duct dilatation. Surgical consult is obtained for furthe r evaluation and treatment. PAST MEDICAL HISTORY: 1. BMI 32, obesity. 2. Cholelithiasis. 3. Possible cholecystitis. 4. Dilated hepatic ducts, possible choledocholithiasis. 5. Abdominal pain. 6. Back pain. PAST SURGICAL HISTORY: Denies. MEDICATIONS: Soma. ALLERGIES: DENIES. SOCIAL HISTORY: Denies recreational drugs or tobacco. Social alcohol drinker. FAMILY HISTORY: Noncontributory. REVIEW OF SYSTEMS: A 12-point review of systems negative unless addressed in HPI. No weight change s. No diaphoresis. PHYSICAL EXAMINATION: VITAL SIGNS: Temperature is 96.8, pulse 70s to 90s, blood pressure 112/79, saturating 100% on room air. GENERAL: No acute distress, however uncomfortable and obese. HEENT: Pupils equal, reactive. No scleral icterus. Mucous membranes are somewhat dry. NECK: No crepitus, no JVD. Trachea midline. PULMONARY: Normal respiratory effort. No wheezing. CARDIAC: S1, S2 present. ABDOMEN: Tender mostly in epigastric and right upper quadrant. Positive Sparks's. No rebound, no guarding. Not rigid. EXTREMITIES: No edema. VASCULAR: Capillary refill less than 2 seconds. NEUROLOGIC: Alert, oriented. Moves all 4 extremities grossly. LABORATORY AND RADIOGRAPHIC: As per chart. ASSESSMENT AND PLAN: Ms. Amitna Beavers is a 31-year-old female. 1. Abdominal pain secondary to cholelithiasis and possible cholecystitis and questionable choledoch olithiasis. Agree with n.p.o., IV fluids, IV antibiotics and to proceed with cholecystectomy. I cox d a long discussion with the patient and family members, and they all agreed to proceed. 2. Nausea and vomiting secondary to above. As above. 3. Body mass index 32. The patient is highly encouraged to improve nutrition and exercise to impro ve her overall health status. Thank you very much for consulting me in this patient's care. Dictated By: KAPIL CLAUDIO/DIGNA Conf#: [id number] DID#: [id number]
[2016-10-01] MEDS ORDERED: HYDROCODONE/APAP (5/325) TAB PO PRN (19:30)
[2016-10-01] MEDS ORDERED: D5W-0.45 NACL + KCL 20 MEQ 1,000 ML IV SCH (21:00)
[2016-10-01] MEDS: HYDROmorphONE 1 MG/ML SYG IV PRN (22:47)
[2016-10-02 06:27] LABS: BASOPHILS % 0.1 % (0.0-2.0); HEMOGLOBIN 12.3 g/dl (12.0-16.0); LYMPHOCYTES # 0.8 10^3/ul (0.8-2.9); LYMPHOCYTES % 6.8 % (15.0-51.0); MEAN CORPUSCULAR HEMOGLOBIN 30.5 pg (29.0-33.0); MEAN CORPUSCULAR HGB CONC 35.1 g/dl (32.0-37.0); MEAN CORPUSCULAR VOLUME 86.8 fl (82.0-101.0); MEAN PLATELET VOLUME 8.7 fl (7.4-10.4); MONOCYTE # 0.7 10^3/ul (0.3-0.9); MONOCYTES % 5.5 % (0.0-11.0); NEUTROPHILS % 87.6 % (39.0-77.0); PLATELET COUNT 346 10^3/UL (140-440); RED BLOOD COUNT 4.03 10^6/ul (4.20-5.40); RED CELL DISTRIBUTION WIDTH 13.2 % (11.5-14.5); UNCORRECTED WBC 12.5 10^3/ul (4.8-10.8); WHITE BLOOD COUNT 12.5 10^3/ul (4.8-10.8)
[2016-10-02 06:42] LABS: ALBUMIN 3.7 g/dl (3.3-4.9)
[2016-10-02 06:43] LABS: CONDITION 1
[2016-10-02 06:45] LABS: ALBUMIN/GLOBULIN RATIO 1.08; BILIRUBIN,INDIRECT 1.1 mg/dl (0-1.1); BILIRUBIN,TOTAL 1.1 mg/dl (0.2-1.3); CALCIUM 8.6 mg/dl (8.4-10.2); CREATININE 0.66 mg/dl (0.44-1.00); TOTAL PROTEIN 7.1 g/dl (6.1-8.1)
[2016-10-02 07:34] VITALS: BP 104/72; RESP 18
[2016-10-02] MEDS: PIPER-TAZO 3.375 GM IV (PMX) 100 ML IVPB SCH ×2 (08:04→15:13)
[2016-10-02] MEDS: HYDROCODONE/APAP (5/325) TAB PO PRN ×4 (08:04→22:17)
[2016-10-02] MEDS: HYDROmorphONE 1 MG/ML SYG IV PRN (11:14)
--- NOTE | 2016-10-02 13:54 | PN ---
Date/Time of Note Date/Time of Note DATE: 10/02/16 TIME: 13:47 Assessment/Plan VTE Prophylaxis VTE Prophylaxis Intervention: ambulation, SCD's Lines/Catheters IV Catheter Type (from Nrsg): Peripheral IV Assessment/Plan Assessment/Plan 31 yo female with: 1. Acute cholecystitis s/p cholecystectomy D/c home today with po Augmentin and probiotics Drain in place and HH RN for drain care F/u with Dr Rodrigues within 1 week 2. Abnormal color of liver intra op, Liver bx taken Prophylaxis: DVT ppx with ambulation. Disposition: d/c home with HH RN check and f/u with PCP and Dr Rodrigues within 1 week Subjective 24 Hr Interval Summary Free Text/Dictation Patient did ambulate and advancing diet to soft Pain controlled and discussed with Dr Rodrigues, patient ok to d/c home with drain in place and po Abx F/u with Dr Rodrigues and PCP within 1 weeks and HH RN for drain care Exam/Review of Systems Vital Signs Vitals Vital Signs Date Time Temp Pulse Resp B/P Pulse Ox O2 Delivery O2 Flow Rate FiO2 10/02/16 07:34 98.6 76 18 104/72 96 10/01/16 19:41 Nasal Cannula Intake and Output 10/01/16 10/01/16 10/02/16 15:00 23:00 07:00 Intake Total 1500 ml 790 ml Output Total 30 ml 815 ml Balance 1470 ml -25 ml Exam Constitutional: alert, oriented Respiratory: clear to auscultation, normal air movement Cardiovascular: nl pulses, regular rate and rhythm Gastrointestinal: other (RUQ drain in place ), soft, tender (at surgical site ) Musculoskeletal: nl extremities to inspection Extremities: normal pulses, other (no edema, clubbing or cyanosis ) Neurological: SHAKE SPLITTER II-XII intact, nl mental status, nl speech, nl strength Results Result Diagram: 10/02/16 0534 10/02/16 0534 Results 24 hrs Laboratory Tests Test 10/02/16 05:34 Alanine Aminotransferase (ALT/SGPT) 73 H Albumin 3.7 Albumin/Globulin Ratio 1.08 Alkaline Phosphatase 55 Anion Gap 14 Aspartate Amino Transf (AST/SGOT) 87 H Basophils # 0.0 Basophils % 0.1 Blood Urea Nitrogen 5 L Calcium Level 8.6 Carbon Dioxide Level 25 Chloride Level 104 Creatinine 0.66 Direct Bilirubin 0.00 Eosinophils # 0.0 Eosinophils % 0.0 Globulin 3.40 H Glucose Level 128 Hematocrit 35.0 L Hemoglobin 12.3 Indirect Bilirubin 1.1 Lymphocytes # 0.8 Lymphocytes % 6.8 L Mean Corpuscular Hemoglobin 30.5 Mean Corpuscular Hemoglobin Concent 35.1 Mean Corpuscular Volume 86.8 Mean Platelet Volume 8.7 Monocytes # 0.7 Monocytes % 5.5 Neutrophils # 11.0 H Neutrophils % 87.6 H Nucleated Red Blood Cells # 0.0 Nucleated Red Blood Cells % 0.0 Platelet Count 346 Potassium Level 4.0 Red Blood Count 4.03 L Red Cell Distribution Width 13.2 Sodium Level 139 Total Bilirubin 1.1 Total Protein 7.1 # White Blood Count 12.5 #H Medications Medications Current Medications Ondansetron HCl 4 mg 4 mg Q4H PRN IV nausea Last administered on 10/01/16 08:34 ; Admin Dose 4 MG; Start 10/01/16 at 07:00 Piperacillin Sod/ Tazobactam Sod (Zosyn 3.375gm/ 100 ml (Pmx)) 100 ml @ 200 mls /hr Q8H IVPB Last administered on 10/02/16 08:04; Admin Dose 200 MLS/HR; Start 10/01/16 at 07:00 Acetaminophen/ Hydrocodone Bitart ([place] (5/325)) 2 tab Q4H PRN PO Pain 6-10 Last administered on 10/02/16 13:02; Admin Dose 2 TAB; Start 10/01/16 at 19:30 Acetaminophen/ Hydrocodone Bitart ([place] (5/325)) 1 tab Q4H PRN PO Pain 1-5; Start 10/01/16 at 19:30 Hydromorphone HCl (Dilaudid) 0.5 mg Q2 PRN IV Breakthrough PAIN Last administered on 10/02/16 11:14; Admin Dose 0.5 MG; Start 10/01/16 at 19:30 EMILY GARAY Oct 02, 2016 13:53
--- NOTE | 2016-10-02 13:56 | PDOCDIS ---
Discharge Instructions CONDITION Patient Condition: Stable HOME CARE INSTRUCTIONS: Diet Instructions: Low Fat /CholesterolSpecial Diet: soft diet ACTIVITY: Activity Restrictions: Avoid heavy lifting Do not operate Machinery Do not operate Power Tool Avoid Heavy Housework FOLLOW UP/APPOINTMENTS Appointments Follow up with PCP within 1 week Follow up with Dr Rodrigues within 1 to 2 weeks Follow with Home health RN for [facility] EMILY GARAY Oct 02, 2016 13:56
[2016-10-02] MEDS ORDERED: DOCU-144 PO (13:58)
[2016-10-02] MEDS ORDERED: AMOX1TAB10 PO (13:58)
[2016-10-02] MEDS: ONDANSETRON 4 MG INJ IV PRN (17:45)
[2016-10-02 19:37] VITALS: BP 107/59; RESP 16
== END 2016-10-02 22:59 | disposition home health service (06) | DRG 418 ==
LOC: E/R 02:52 → SDS 14:21 → PP2 18:28 → SDS 18:28
PROVIDERS: ADMIT Legal Medicine; ATTEND Surgery
PROC: BF0C1ZZ Plain Radiography of Hepatobiliary System, All using Low Osmolar Contrast (ICD-10-PCS; 2016-10-01)
PROC: 0FB04ZX Excision of Liver, Percutaneous Endoscopic Approach, Diagnostic (ICD-10-PCS; 2016-10-01)
PROC: 0FT44ZZ Resection of Gallbladder, Percutaneous Endoscopic Approach (ICD-10-PCS; principal; 2016-10-01 13:00)
DX: K80.00 Calculus of gallbladder with acute cholecystitis without obstruction (principal); Q44.7 Other congenital malformations of liver; E66.9 Obesity, unspecified; Z68.32 Body mass index [BMI] 32.0-32.9, adult
CPT/HCPCS: 36415; 74000; 74181; 80053; 83690; 84703; 85025; 88304; 88307; 88313; 96361; 96374; 96375; 96376; J0690; J1100; J1170; J1885; J2175; J2250; J2270; J2405; J2543; J2710; J2765; J2795; J3010; J3480; J7030; Q9967

== ENCOUNTER 2016-11-07 09:00 | Emergency (ER) | payer OTHER ==
[~2016-11-07] VITALS: Wt 63.5 kg
[~2016-11-07 09:00] MED LIST changes: +AMOX1TAB10 PO; +DOCU-144 PO
[2016-11-07] MEDS ORDERED: KETOROLAC 30 MG INJ IV STA (09:23)
[2016-11-07] MEDS ORDERED: ONDANSETRON 4 MG INJ IV STA (09:23)
[2016-11-07] MEDS ORDERED: morphine 4 MG/ML VIAL IV STA ×2 (09:27→13:39)
--- NOTE | 2016-11-07 10:01 | RADRPT ---
PROCEDURE: XR Chest. CLINICAL INDICATION: Chest and right flank pain. History of gallbladder surgery. TECHNIQUE: Single frontal view. COMPARISON: None. FINDINGS: The lungs are clear. The heart size is normal. There is no pleural effusion. There is no pneumothorax. IMPRESSION: 1. Normal chest radiograph. RPTAT: QQ .Gil Sams MD, MD Date Time Electronically viewed and signed by .Gil Sams MD, MD on 11/07/2016 10:01 .R/
[2016-11-07 10:10] LABS: ADD SCAN DIFF NO
[2016-11-07 10:12] LABS: BASOPHIL # 0.1 10^3/ul (0.0-0.1); BASOPHILS % 0.7 % (0.0-2.0); EOSINOPHILS # 0.3 10^3/ul (0.0-0.5); EOSINOPHILS % 3.8 % (0.0-7.0); HEMATOCRIT 37.3 % (37.0-47.0); HEMOGLOBIN 13.1 g/dl (12.0-16.0); LYMPHOCYTES # 1.7 10^3/ul (0.8-2.9); LYMPHOCYTES % 20.1 % (15.0-51.0); MEAN CORPUSCULAR HEMOGLOBIN 29.8 pg (29.0-33.0); MEAN CORPUSCULAR HGB CONC 35.1 g/dl (32.0-37.0); MEAN PLATELET VOLUME 10.3 fl (7.4-10.4); MONOCYTE # 0.6 10^3/ul (0.3-0.9); MONOCYTES % 6.9 % (0.0-11.0); NEUTROPHIL # 5.9 10^3/ul (1.6-7.5); NEUTROPHILS % 68.2 % (39.0-77.0); PLATELET COUNT 353 10^3/UL (140-415); RED BLOOD COUNT 4.39 10^6/ul (4.20-5.40); RED CELL DISTRIBUTION WIDTH 12.2 % (11.5-14.5); WHITE BLOOD COUNT 8.7 10^3/ul (4.8-10.8)
[2016-11-07 10:24] LABS: ALBUMIN 4.3 g/dl (3.3-4.9)
[2016-11-07 10:27] LABS: ALBUMIN/GLOBULIN RATIO 1.19; BILIRUBIN,INDIRECT 1.1 mg/dl (0-1.1); BILIRUBIN,TOTAL 1.1 mg/dl (0.2-1.3); CREATININE 0.59 mg/dl (0.44-1.00); TOTAL PROTEIN 7.9 g/dl (6.1-8.1)
[2016-11-07 11:40] LABS: ADD UMIC NO; URINE BILIRUBIN (Dip) NEGATIVE (NEGATIVE); URINE BLOOD (Dip) NEGATIVE (NEGATIVE); URINE COLOR LT. YELLOW (YELLOW); URINE GLUCOSE (Dip) NEGATIVE (NEGATIVE); URINE KETONES (Dip) NEGATIVE (NEGATIVE); URINE LEUKOCYTE ESTERASE (Dip) NEGATIVE (NEGATIVE); URINE NITRITE (Dip) NEGATIVE (NEGATIVE); URINE TOTAL PROTEIN (Dip) NEGATIVE (NEGATIVE); URINE UROBILINOGEN (Dip) 0.2 E.U./dL (0.1-1.0)
[2016-11-07] MEDS ORDERED: DIATR MEGLU/DIATRIZOATE SODIUM 120 ML BTL ONE (11:48)
[2016-11-07] MEDS ORDERED: IOHEXOL 300MG/ML 150 ML BTL ONE (11:49)
[2016-11-07] MEDS ORDERED: SOD CHLORIDE 0.9% 100 ML ONE (11:49)
--- NOTE | 2016-11-07 13:45 | RADRPT ---
PROCEDURE: CT Abdomen and pelvis with contrast. CLINICAL INDICATION: Right upper quadrant and epigastric abdominal pain. TECHNIQUE: CT scan of the abdomen and pelvis with contrast was performed on a multidetector high-r esolution CT scan. The patient was scanned following the uncomplicated intravenous administration o f 100 ml Omnipaque-300. Coronal and sagittal reformatted images were obtained from the axial source images. Standard CT of the abdomen pelvis with contrast protocols were performed. The total exam CTDI equals 13.15 mGy and the total exam DLP equals 767.8 mGy-cm. One or more of the following dose reduction techniques were used: - Automated exposure control. - Adjustment of the mA and/or kV according to patient size. Use of iterative reconstruction technique. COMPARISON: CT scan of the pelvis 09/30/2016 FINDINGS: The patient is status post cholecystectomy without evidence of biliary ductal dilation. The liver is normal in size without focal hepatic lesions. The spleen pancreas and adrenal glands are normal in size configuration without focal lesions. The kidneys are normal in size without calc ified urinary calculi hydronephrosis or intra renal masses bilaterally. The urinary bladder is unrem arkable. The uterus is anteverted and anteflexed with central low density likely due to menstrual c hanges. In the right adnexa is a 2 cm cyst likely out right ovarian cyst. On the previous study th ere is a ring enhancing cystic structure in the left adnexa which is not seen on the current study p robably due to an involuted hemorrhagic left ovarian cyst. Negative for intra-abdominal free air fr ee fluid abscesses or lymphadenopathy. The appendix is unremarkable. The stomach, small bowel and l arge bowel are unremarkable. Subcutaneous changes involving the right upper abdominal wall is consistent with postsurgical changes from previous recent cholecystectomy. Minimal dependent lung a telectasis. Lung bases are otherwise unremarkable. No change in appearance of sclerosis along the lateral aspects of the right and left sacroiliac joints worse on the right. There is no acute osseo us findings. IMPRESSION: 1. Interval cholecystectomy without evidence of biliary ductal dilation. 2. Negative for intra-abdominal free air fluid abscesses or lymphadenopathy. 3. 2 cm right adnexal cyst likely right ovarian cyst. 4. Unremarkable appendix. RPTAT:AAJJ Abisai Deleon, Physician Date Time Electronically viewed and signed by Abisai Deleon Physician on 11/07/2016 13:45 BM/
[2016-11-07] MEDS ORDERED: IBUP-1542 PO (14:59)
--- NOTE | 2016-11-07 15:09 | ERD ---
ER Documentation Chief Complaint Date/Time DATE: 11/07/16 TIME: 15:03 Chief Complaint r upper quad abd pain for the past few days. s/p gallbladder surg 1mo HPI 31-year-old female status post laparoscopic cholecystectomy by Dr. Rodrigues on October 01, 2016 presenting with right upper quadrant pain. Her pain started about 2 days ago and was intermittent initially, but now is constant since last night. She describes the pain as stabbing, radiating to her epigastrium. She has had no nausea, vomiting, fevers, chills, constipation, or diarrhea. She states she was doing well after the surgery up until 2 days ago. ROS All systems reviewed and are negative except as per history of present illness. Medications Home Meds Active Scripts Ibuprofen* (Motrin*) 600 Mg Tab, 600 MG PO Q6H Y for PAIN AND OR ELEVATED TEMP, #30 TAB Prov:KAMLESH MEI MD 11/07/16 Discontinued Scripts Docusate Sodium* (Colace*) 100 Mg Capsule, 100 MG PO BID Y for CONSTIPATION, # 60 CAP Prov:EMILY GARAY 10/02/16 Amoxicillin/Potassium Clav (Amox-Clav 875-125 mg Tablet) 875-125 mg Tab, 1 TAB PO BID for 7 Days, TAB Prov:EMILY GARAY 10/02/16 Ondansetron (Ondansetron Odt) 4 Mg Tab.rapdis, 4 MG PO Q8 Y for NAUSEA AND/OR VOMITING, #10 TAB Prov:LIZZY DOMINGUEZ [employer]ANG [employer]OWER OPERATOR 09/30/16 Hydrocodone/Acetaminophen ([place] 5-325 Tablet) 1 Each Tablet, 1 TAB PO Q6H Y for PAIN, #20 TAB Prov:LIZZY DOMINGUEZ G[employer] MOWER OPERATOR 09/30/16 Allergies Allergies: Coded Allergies: No Known Allergy (Unverified , 09/29/16) PMhx/Soc Medical and Surgical Hx: pt denies Medical Hx History of Surgery: Yes (galbladder) Anesthesia Reaction: No Hx Neurological Disorder: No Hx Respiratory Disorders: No Hx Cardiac Disorders: No Hx Psychiatric Problems: No Hx Miscellaneous Medical Probl: No Hx Alcohol Use: Yes (Occasionally ) Hx Substance Use: No Hx Tobacco Use: No Smoking Status: Never smoker FmHx Family History: No diabetes Physical Exam Vitals Vital Signs Date Time Temp Pulse Resp B/P Pulse Ox O2 Delivery O2 Flow Rate FiO2 11/07/16 11:00 73 18 105/73 99 Room Air 11/07/16 09:03 98.8 85 20 139/85 98 Physical Exam Const: Nontoxic, appears to be in distress secondary to pain, tearful Head: Atraumatic Eyes: Normal Conjunctiva ENT: Normal External Ears, Nose and Mouth. Neck: Full range of motion. No meningismus. Resp: Clear to auscultation bilaterally Cardio: Regular rate and rhythm, no murmurs Abd: Soft, moderate tenderness to palpation in the right upper quadrant and epigastrium, voluntary guarding, no rebound non distended. Normal bowel sounds Skin: No petechiae or rashes Back: No midline or flank tenderness Ext: No cyanosis, or edema Neur: Awake and alert Psych: Normal Mood and Affect Result Diagram: 11/07/16 0943 11/07/16 0943 Results 24 hrs Laboratory Tests Test 11/07/16 09:43 11/07/16 10:32 Alanine Aminotransferase (ALT/SGPT) 23IU/L Albumin 4.3g/dl Albumin/Globulin Ratio 1.19 Alkaline Phosphatase 72IU/L Anion Gap 19 Aspartate Amino Transf (AST/SGOT) 22IU/L Basophils # 0.110^3/ul Basophils % 0.7% Blood Urea Nitrogen 8mg/dl Calcium Level 10.0mg/dl Carbon Dioxide Level 25mmol/L Chloride Level 103mmol/L Creatinine 0.59mg/dl Direct Bilirubin 0.00mg/dl Eosinophils # 0.310^3/ul Eosinophils % 3.8% Globulin 3.60g/dl Glucose Level 83mg/dl Hematocrit 37.3% Hemoglobin 13.1g/dl Indirect Bilirubin 1.1mg/dl Lipase 88U/L Lymphocytes # 1.710^3/ul Lymphocytes % 20.1% Mean Corpuscular Hemoglobin 29.8pg Mean Corpuscular Hemoglobin Concent 35.1g/dl Mean Corpuscular Volume 85.0fl Mean Platelet Volume 10.3fl Monocytes # 0.610^3/ul Monocytes % 6.9% Neutrophils # 5.910^3/ul Neutrophils % 68.2% Nucleated Red Blood Cells # 0.010^3/ul Nucleated Red Blood Cells % 0.0/100WBC Platelet Count 22873^3/UL Potassium Level 4.0mmol/L Red Blood Count 4.3910^6/ul Red Cell Distribution Width 12.2% Sodium Level 143mmol/L Total Bilirubin 1.1mg/dl Total Protein 7.9g/dl White Blood Count 8.710^3/ul Urine Bilirubin NEGATIVE Urine Clarity CLEAR Urine Color LT. YELLOW Urine Glucose NEGATIVE% Urine Hemoglobin NEGATIVE Urine Ketones NEGATIVE Urine Leukocyte Esterase NEGATIVE Urine Nitrite NEGATIVE Urine Specific [place] <=1.005 Urine Total Protein NEGATIVE Urine Urobilinogen 0.2 E.U./dL Urine pH 6.5 Current Medications Medications (Trade) Dose Ordered Sig/Melvin Route PRN Reason Start Time Stop Time Status Last Admin Dose Admin Ondansetron HCl (Zofran Inj) 4 mg ONCE STAT IV 11/07/16 09:23 11/07/16 09:24 DC 11/07/16 09:44 Ketorolac Tromethamine (Toradol) 30 mg ONCE STAT IV 11/07/16 09:23 11/07/16 09:28 DC Morphine Sulfate (morphine) 4 mg ONCE STAT IV 11/07/16 09:27 11/07/16 09:28 DC 11/07/16 09:44 Diatrizoate Meglum/ Diatrizoate Sod (Gastrografin 66-10 Solution) 120 ml STK-MED ONCE .ROUTE 11/07/16 11:48 11/07/16 11:49 DC IV Flush 10 ml 10 ml STK-MED ONCE .ROUTE 11/07/16 11:49 11/07/16 11:50 DC Sodium Chloride (NS) 100 ml @ ud STK-MED ONCE .ROUTE 11/07/16 11:49 11/07/16 11:50 DC Iohexol (Omnipaque 300mg/ ml) 150 ml STK-MED ONCE .ROUTE 11/07/16 11:49 11/07/16 11:50 DC Morphine Sulfate (morphine) 4 mg ONCE STAT IV 11/07/16 13:39 11/07/16 13:40 DC 11/07/16 13:48 Procedures/MDM Patient is presenting greater than 1 month after her cholecystectomy with 3 days of worsening upper abdominal pain. Initially I had a concern for retained biliary stone versus pancreatitis versus hepatitis versus intra-abdominal abscess. Bowel perforation was lower on my differential. I also have a low suspicion for pulmonary embolism or pneumonia given the significant abdominal tenderness on my exam. Patient's vitals are stable and she is afebrile. Her CBC, CMP, lipase were all within normal limits. She does not have a UTI. Her chest x-ray does not show evidence of pneumonia or pneumothorax. A CT of the abdomen and pelvis was done with IV contrast and did not show any acute abnormalities, including no free air. The patient was treated with morphine with some relief of her pain. I spoke with Dr. Rodrigues, her surgeon, who did not have any further recommendations regarding workup. He recommended discharge with ibuprofen and instructions to use ice packs on the area that is painful and to follow-up with him in the office tomorrow. I spoke with the patient regarding the plan and she is agreeable. Return precautions were discussed. Patient was tolerating fluids prior to discharge. Departure Diagnosis: Primary Impression: Right upper quadrant abdominal pain of unknown etiology Additional Impression: Status post cholecystectomy Condition: Stable Patient Instructions: Managing Post-Op Pain at Home: Medications, Abdominal Pain, Unknown Cause, (Female) Additional Instructions: Call Dr. Rodrigues's office for an appointment in the morning. Apply ice packs to the area that hurts. If your symptoms worsen, return to the ER. KAMLESH MEI MD Nov 07, 2016 15:08
[2016-11-07 15:20] VITALS: BP 117/65; PULSE 65; RESP 18; TEMP 97.1
== END 2016-11-07 15:23 | disposition home or self-care (01) ==
LOC: E/R 09:00
DX: R10.11 Right upper quadrant pain (principal); R40.2142 Coma scale, eyes open, spontaneous, at arrival to emergency department; R40.2252 Coma scale, best verbal response, oriented, at arrival to emergency department; R40.2362 Coma scale, best motor response, obeys commands, at arrival to emergency department; Z90.49 Acquired absence of other specified parts of digestive tract
CPT/HCPCS: 36415; 71010; 74177; 80053; 81003; 83690; 85025; 96374; 96375; 96376; J2270; J2405; Q9967; Z7502; Z7610